=== PATIENT | female | born 1950 | race Caucasian/White ===

== ENCOUNTER → 2016-04-07 | Outpatient (CLI) | payer MEDICARE, BC ==
[~2016-04-07] MED LIST: ACYCLOVIR200 MG PO; ALDACTONE PO; ALLOPURINOL100 MG PO; ASPIR-LOW81 MG PO; ASPIR-TRIN325 MG PO; ASPIRIN 32325 MG/TAB PO; ATIVAN 0.50.5 MG/TAB PO; ATROVENT I0.2 MG/1 M IH; ATROVENT NASAL15 ML NS; BENADRYL 50MG C50 MG PO; CENTRUM SILVER1 CTB PO; CLARITIN D TAB1 TAB PO; COENZYME Q-1010 MG PO; COLACE 100100 MG/CAP PO; DEXAMETHASONE4 MG PO; DICYCLOMINE HCL10 MG PO; DIFLUCAN200 MG PO; FISH OIL CONC1000 MG PO; FLEXERIL 1010 MG/TAB PO; GREEN TEA PO; GREEN TEA150 MG PO; K-DUR 10 MEQ T10 MEQ PO; LEVOTHYROXIN0.025 MG PO; LEXAPRO 10MG10 MG PO; MAG-CAPS85 MG PO; MELATONIN3 M1 PO; MULTIPLE VITAMI1 CAP PO; OMEGA PO; OXYCODONE PO; PAXIL 10MG10 MG PO; PEPCID AC 10MG10 MG PO; PERCOCET 325 MG1 TA2 PO; PREVACID 30MG30 MG PO; PROCARDIA XL 3030 MG PO; PROTONIX 40MG T40 MG PO; REVLIMID15 MG PO; VITAMIN B-12100 MCG PO; VITAMIN C500 MG PO; VITAMIN D; VITAMIN D1000 IU PO; VITAMIN E1000 U/CAP PO; VITAMIN E800 IU PO; ZITHROMAX Z PA250 MG PO; ZOMETA4 MG/5 ML IV; ZOVIRAX 800MG800 MG PO; [UNRECOGNIZED DRUG - CODE] PO; [UNRECOGNIZED DRUG - OTHER] PO
== END ==
LOC: MC.RAD 09:00
DX: Z12.31 Encounter for screening mammogram for malignant neoplasm of breast (principal)

== ENCOUNTER → 2016-05-05 | Outpatient (CLI) | payer MEDICARE, BC ==
[2016-05-05 10:57] LABS: BASO % 0.4 % (0.0-2.0); EOS # 0.1 (0.0-0.7); GRAN # 3.7 (1.4-6.5); GRAN % 72.5 % (42.2-75.2); HEMATOCRIT 42.1 % (37.0-47.0); HEMOGLOBIN 14.3 g/dl (12.5-16.0); LYMPH # 0.8 (1.2-3.4); LYMPH % 16.2 % (20.0-51.0); MEAN CELL VOLUME 107 fl (80.0-100.0); MEAN CORPUSCULAR HEMOGLOBIN 36 pg (27.0-31.0); MEAN CORPUSCULAR HGB CONC 34 g/dl (33.0-37.0); MEAN PLATELET VOLUME 8.7 fl (7.4-10.4); MONO # 0.5 (0.1-0.6); MONO % 9.7 % (1.7-9.3); PLATELET COUNT 242 K/mm3 (130-400); RED BLOOD COUNT 3.94 M/mm3 (4.10-5.30); REDCELL DISTRIBUTION WIDTH-CV 12.3 % (11.5-14.5); WHITE BLOOD COUNT 5.1 K/mm3 (4.8-10.8)
[2016-05-05 12:07] LABS: ADJUSTED CALCIUM 9.7 mg/dL (8.4-10.2); ALBUMIN 4.7 gm/dL (3.5-5.0); BILIRUBIN,TOTAL 0.5 mg/dL (0.0-1.0); CALCIUM 10.3 mg/dL (8.4-10.2); CREATININE, serum 0.99 mg/dL (0.52-1.25); TOTAL PROTEIN 7.7 gm/dL (6.4-8.2)
[2016-05-05 23:00] LABS: IMMUNOGLOBULIN A 31 mg/dL (69-517); IMMUNOGLOBULIN G 652 mg/dL (552-1631); SERUM PROTEIN TOTAL 6.9 g/dL (6.0-7.6)
[2016-05-06 15:24] LABS: ALBUMIN FRACTION 4.4 g/dL (2.6-4.5); ALBUMIN PERCENTAGE 63.2 % (48.7-61.8); ALPHA 1 FRACTION 0.3 g/dL (0.3-0.5); ALPHA 1 PERCENTAGE 4.3 % (3.4-8.3); ALPHA 2 FRACTION 0.9 g/dL (0.6-1.2); ALPHA 2 PERCENTAGE 12.7 % (8.4-17.5); BETA 1 FRACTION 0.5 g/dL (0.4-0.6); BETA 1 PERCENTAGE 7.2 % (5.4-8.9); BETA 2 FRACTION 0.3 g/dL (0.2-0.5); BETA 2 PERCENTAGE 4.2 % (3.8-7.7); GAMMA FRACTION 0.6 g/dL (0.4-1.7); GAMMA PERCENTAGE 8.4 % (8.1-23.0); IMMUNOGLOBULIN M, QUANTITATIVE <6 mg/dL (33-293)
[2016-05-07 13:41] LABS: KAPPA LAMBDA RATIO 1.05 (())
== END ==
LOC: COL.LAB 09:57
PROVIDERS: Specialist
DX: C90.00 Multiple myeloma not having achieved remission (principal)

== ENCOUNTER → 2016-09-28 | Outpatient (CLI) | payer MEDICARE, BC | LOC: COL.RAD 11:00 | DX: R10.30 Lower abdominal pain, unspecified (principal); Z85.79 Personal history of other malignant neoplasms of lymphoid, hematopoietic and related tissues | CPT/HCPCS: Q9967 ==

== ENCOUNTER → 2017-01-06 | Outpatient (CLI) | payer MEDICARE, BC | LOC: COL.RAD 09:55 | DX: B45.0 Pulmonary cryptococcosis (principal); R91.8 Other nonspecific abnormal finding of lung field | CPT/HCPCS: Q9967 ==

== ENCOUNTER 2017-03-25 11:00 | Outpatient (RCR) | payer MEDICARE, BC | END 2017-03-25 12:41 | disposition home or self-care (01) | LOC: MKS.ESL.PT 11:00 | DX: M25.511 Pain in right shoulder (principal); Z79.82 Long term (current) use of aspirin; Z85.9 Personal history of malignant neoplasm, unspecified; Z92.3 Personal history of irradiation; Z94.84 Stem cells transplant status | CPT/HCPCS: G8978-GP; G8979-GP; G8980-GP ==

== ENCOUNTER → 2017-04-27 | Outpatient (CLI) | payer MEDICARE, BC | LOC: MC.RAD 10:54 | DX: Z12.31 Encounter for screening mammogram for malignant neoplasm of breast (principal) ==

== ENCOUNTER 2018-03-16 10:58 | Outpatient (RCR) | payer MEDICARE, BC | END 2018-03-22 15:01 | disposition home or self-care (01) | LOC: MKS.ESL.PT 10:58 | DX: Z01.818 Encounter for other preprocedural examination (principal); M75.22 Bicipital tendinitis, left shoulder ==

== ENCOUNTER → 2018-05-25 | Outpatient (CLI) | payer MEDICARE, BC | LOC: MC.RAD 13:45 | DX: Z12.31 Encounter for screening mammogram for malignant neoplasm of breast (principal) ==

== ENCOUNTER 2018-06-14 10:30 | Outpatient (RCR) | payer MEDICARE, BC | END 2018-06-20 | disposition home or self-care (01) | LOC: MKS.ESL.PT | DX: Z47.89 Encounter for other orthopedic aftercare (principal) ==

== ENCOUNTER 2018-06-21 11:57 | Outpatient (RCR) | payer MEDICARE, BC | END 2018-06-27 16:02 | disposition home or self-care (01) | LOC: MKS.ESL.PT 11:57 | DX: Z47.89 Encounter for other orthopedic aftercare (principal); M75.22 Bicipital tendinitis, left shoulder ==

== ENCOUNTER 2019-01-24 10:00 | Outpatient (RCR) | payer MEDICARE, BC | END 2019-02-26 | disposition home or self-care (01) | LOC: MKS.ESL.PT | DX: M62.838 Other muscle spasm (principal) ==

== ENCOUNTER → 2019-08-10 | Outpatient (CLI) | payer MEDICARE, BC | LOC: MC.RAD 10:55 | DX: Z12.31 Encounter for screening mammogram for malignant neoplasm of breast (principal) ==

== ENCOUNTER → 2020-08-12 | Outpatient (CLI) | payer MEDICARE, BC | LOC: MC.RAD 14:00 | DX: Z12.31 Encounter for screening mammogram for malignant neoplasm of breast (principal) ==

== ENCOUNTER → 2021-03-27 | Outpatient (CLI) | payer MEDICARE, BC | LOC: COL.RAD 13:26 | DX: Z12.2 Encounter for screening for malignant neoplasm of respiratory organs (principal); F17.210 Nicotine dependence, cigarettes, uncomplicated ==

== ENCOUNTER → 2021-09-16 | Outpatient (CLI) | payer MEDICARE, BC | LOC: MC.RAD 09:44 | DX: Z12.31 Encounter for screening mammogram for malignant neoplasm of breast (principal) ==

== ENCOUNTER → 2022-03-31 | Outpatient (CLI) | payer MEDICARE, BC | LOC: COL.RAD 09:55 | DX: Z12.2 Encounter for screening for malignant neoplasm of respiratory organs (principal); R91.8 Other nonspecific abnormal finding of lung field; E78.5 Hyperlipidemia, unspecified; I10 Essential (primary) hypertension; F41.9 Anxiety disorder, unspecified; N17.2 Acute kidney failure with medullary necrosis; F17.210 Nicotine dependence, cigarettes, uncomplicated ==

== ENCOUNTER 2023-02-18 14:47 | Outpatient (RCR) | payer MEDICARE, BC ==
[2005-12-18 10:45] VITALS: TEMP 98.3
== END 2023-02-28 | disposition home or self-care (01) ==
LOC: MKS.ESL.PT
DX: M25.552 Pain in left hip (principal)

== ENCOUNTER → 2023-03-31 | Outpatient (RCR) | payer MEDICARE, BC ==
[2005-12-18 10:45] VITALS: TEMP 98.3
== END | disposition home or self-care (01) ==
LOC: MKS.ESL.PT
DX: M25.552 Pain in left hip (principal)

== ENCOUNTER → 2023-04-02 | Outpatient (CLI) | payer MEDICARE, BC ==
[2005-12-18 10:45] VITALS: TEMP 98.3
== END ==
LOC: COL.RAD 09:06
DX: Z12.2 Encounter for screening for malignant neoplasm of respiratory organs (principal); Z87.891 Personal history of nicotine dependence

== ENCOUNTER → 2023-11-17 | Outpatient (CLI) | payer MEDICARE, BC ==
[2005-12-18 10:45] VITALS: TEMP 98.3
== END ==
LOC: MC.RAD 14:53
DX: Z12.31 Encounter for screening mammogram for malignant neoplasm of breast (principal)